=== PATIENT | female | born 1970 | race Hispanic/Latino ===

== ENCOUNTER → 2022-10-22 | Day surgery (SDC) | payer OTHER ==
[~2022-10-22] MED LIST: ACETAMINOPHEN 1000 MG/100 ML 100 ML IV ONE; AIMOVIG AU140 MG/1 M INJ; ASPIRIN81 MG PO; BUPIVACAINE 0.25% 30ML SDV ONE; CEFAZOLIN SODIUM 2 GM ONE; DEXAMETHASONE SOD PHOS INJ 4 MG/ML SDV ONE; DORZOLAMIDE HCL10 ML OP; FAMOTIDINE20 MG PO; FENOPROFEN CAL600 MG PO; FENTANYL CITRATE/PF 100MCG/2 ML INJ ONE; FISH OIL OMEGA1 EACH PO; FOLIC ACID0.4 MG PO; HYDROXYCHLOROQ200 MG PO; INDERAL LA60 MG PO; KETOROLAC TROMETHAMINE 30 MG/ML VIAL ONE; LACTATED RINGER'S 1,000 ML ONE; LATANOPROST2.5 ML OP; LIDOCAINE HCL 2% LOCAL INJ 5 ML SDV VIAL INJ ONE; MAGNESIUM OXID400 MG PO; NP THYROID60 MG PO; ONDANSETRON HCL INJ 2MG/ML 2ML 2 MG/ML VIAL ONE; POVIDONE IODINE 0.05% 0.05 % ML PO ONE; PROPOFOL IV EMULSION 10 MG/ML 20 ML VIAL ONE; SEVOFLURANE INHAL SOLN 250 ML PEN BTL ONE; VIT C PO; VIT D PO; XELJANZ XR11 MG PO; [UNRECOGNIZED DRUG - OTHER] PO; [UNRECOGNIZED DRUG - OTHER] PO
[2022-10-22] MEDS: FENTANYL CITRATE/PF 100MCG/2 ML INJ ONE ×2 (14:07→14:12)
[2022-10-22 14:25] VITALS: BP 146/81; PULSE 58; RESP 16; O2SAT 100
== END | disposition home or self-care (01) ==
LOC: OR 10:15
PROVIDERS: ATTEND Podiatrist Foot & Ankle Surgery
DX: M20.42 Other hammer toe(s) (acquired), left foot (principal); M21.622 Bunionette of left foot; M06.9 Rheumatoid arthritis, unspecified; I10 Essential (primary) hypertension; E03.9 Hypothyroidism, unspecified; K21.9 Gastro-esophageal reflux disease without esophagitis; Z88.3 Allergy status to other anti-infective agents; Z79.82 Long term (current) use of aspirin; Z79.899 Other long term (current) drug therapy
CPT/HCPCS: 28110; 28296; 81025; J0131; J1100; J1885; J2001; J2405; J2704; J3010; J7121